=== PATIENT | female | born 1975 | race Hispanic/Latino ===

== ENCOUNTER 2022-09-22 18:02 | Observation (INO) | payer OTHER ==
[~2022-09-22 18:02] MED LIST: Iopamidol-370 76% 500 ML MDV (1 ML CHARGE) ONE
[2022-09-22 18:22] LABS: #Basophils 0.1 thou/uL (0.0-0.2); #Eosinphils 0.1 thou/uL (0.0-0.7); #Monocytes 0.3 thou/uL (0.11-0.59); #Neutrophils 3.1 thou/uL (1.40-6.50); %Basophils 1.1 % (0.0-1.0); %Eosinophils 1.6 % (0.0-10.0); %Lymphocytes 37.2 % (21.0-51.0); %Monocytes 5.3 % (0.0-10.0); %Neutrophils 54.6 % (42.0-75.0); Hemoglobin 13.6 g/dL (12.0-16.0); Mean Corpuscular HGB CONC 34.3 g/dL (32.0-36.0); Mean Corpuscular Hemoglobin 32.7 pg (27.0-31.0); Mean Corpuscular Volume 95.2 fl (78.0-98.0); Mean Platelet Volume 9.9 fL (7.4-10.4); Platelet Count 253 10x3/uL (130-400); RBC Distribution Width 11.8 % (11.5-14.5); Red Blood Cell (RBC) Count 4.16 mill/uL (4.20-5.40); White Blood Cell (WBC) Count 5.6 10x3/uL (4.8-10.8)
[2022-09-22 18:46] LABS: ALT (SGPT) 11 U/L (8-55); AST (SGOT) 16 U/L (5-34); Albumin 4.6 g/dL (3.5-5.0); Alkaline Phosphatase 44 U/L (40-110); Anion Gap 19 mmol/L (10-20); BUN (Urea Nitrogen) 13 mg/dL (7.0-18.7); Bilirubin, Total 0.2 mg/dL (0.2-1.2); Calc. Creatinine Clearance 0 mL/min (70-130); Calcium 9.5 mg/dL (7.8-10.44); Carbon Dioxide 21 mmol/L (22-29); Chloride 104 mmol/L (98-107); Estimated GFR 87; Globulin 2.8 g/dL (2.4-3.5); Glucose 111 mg/dL (70-105); Lipase 87 U/L (8-78); Potassium 3.5 mmol/L (3.5-5.1); Protein, Total 7.4 g/dL (6.0-8.3); Sodium 140 mmol/L (136-145)
[2022-09-22] MEDS ORDERED: Nitroglycerin 0.4 MG TAB 1 EACH ONE (22:01)
[2022-09-22] MEDS ORDERED: Aspirin Chewable 81 MG TAB ONE (22:01)
[2022-09-22 22:56] LABS: Pregnancy Test - Urine (BHCG) Negative (Negative); Pregu Control Background? CLEAR/WHITE (CLR/WHITE); Pregu Control Bar Appear? YES (CONTROL BAR)
[2022-09-22] MEDS ORDERED: Nitroglycerin 0.4 MG TAB (25 Tab Bottle) SL PRN (23:19)
[2022-09-22] MEDS ORDERED: Ondansetron ODT 4 MG TAB PO PRN (23:20)
[2022-09-22] MEDS ORDERED: Acetaminophen 325 MG TAB PO PRN (23:20)
[2022-09-22] MEDS ORDERED: Calcium Carbonate 500 MG ChewTAB PO PRN (23:20)
[2022-09-23] MEDS ORDERED: Nitroglycerin 0.4 MG TAB 1 EACH ONE (01:07)
[2022-09-23 02:12] LABS: Troponin I Less than 0.010 ng/mL (< 0.028)
[2022-09-23 03:35] VITALS: TEMP 98.3
[2022-09-23 05:19] LABS: #Eosinphils 0.1 thou/uL (0.0-0.7); #Monocytes 0.2 thou/uL (0.11-0.59); #Neutrophils 1.7 thou/uL (1.40-6.50); %Basophils 1.1 % (0.0-1.0); %Eosinophils 3.3 % (0.0-10.0); %Lymphocytes 42.9 % (21.0-51.0); %Monocytes 6.4 % (0.0-10.0); Hemoglobin 11.3 g/dL (12.0-16.0); Mean Corpuscular HGB CONC 32.9 g/dL (32.0-36.0); Mean Corpuscular Hemoglobin 31.7 pg (27.0-31.0); Mean Corpuscular Volume 96.3 fl (78.0-98.0); Mean Platelet Volume 9.9 fL (7.4-10.4); Platelet Count 201 10x3/uL (130-400); RBC Distribution Width 11.9 % (11.5-14.5); Red Blood Cell (RBC) Count 3.56 mill/uL (4.20-5.40); White Blood Cell (WBC) Count 3.6 10x3/uL (4.8-10.8)
[2022-09-23 05:39] LABS: Anion Gap 11 mmol/L (10-20); BUN (Urea Nitrogen) 9 mg/dL (7.0-18.7); Calc. Creatinine Clearance 0 mL/min (70-130); Calcium 8.7 mg/dL (7.8-10.44); Carbon Dioxide 24 mmol/L (22-29); Cardiac Risk 3.7 (Less than 4.5); Chloride 109 mmol/L (98-107); Cholesterol 205 mg/dl (< 200 Desired); Estimated GFR 89; Glucose 88 mg/dL (70-105); HDL Cholesterol 55 mg/dL (>60 Neg Risk); LDL Cholesterol, Calculated 138 mg/dL; Sodium 140 mmol/L (136-145); Triglycerides 60 mg/dL (Less than 150)
[2022-09-23 05:44] LABS: Troponin I Less than 0.010 ng/mL (< 0.028)
[2022-09-23 08:06] VITALS: BMI 21.6
[2022-09-23] MEDS ORDERED: Famotidine 20 MG TAB ONE (08:55)
[2022-09-23] MEDS ORDERED: Aspirin Chewable 81 MG TAB PO SCH (09:00)
[2022-09-23] MEDS ORDERED: Famotidine 20 MG TAB PO SCH (09:00)
[2022-09-23] MEDS ORDERED: ADENOSINE 60 MG/20 ML SDV ONE (09:10)
[2022-09-23 13:01] VITALS: BP 133/89
== END 2022-09-23 13:10 | disposition home or self-care (01) ==
LOC: ERS 18:02 → ERHOLD 23:37
PROVIDERS: ADMIT Student in an Organized Health Care Education/Training Program; ATTEND Internal Medicine
DX: R07.89 Other chest pain (principal); E78.5 Hyperlipidemia, unspecified; N18.2 Chronic kidney disease, stage 2 (mild)
CPT/HCPCS: 36415; 71045; 74177; 78452; 80048; 80053; 80061; 81025; 83690; 84484; 85025; 93005; 93017; A9500; G0378; J0153; Q9967